=== PATIENT | female | born 1990 | race Caucasian/White ===

== ENCOUNTER 2017-03-01 17:16 | Emergency (ER) | payer MEDICAID, OTHER ==
[~2017-03-01] VITALS: Ht 165.1 cm; Wt 96.3 kg
[2017-03-01 17:18] VITALS: BP 132/90
== END 2017-03-01 18:35 ==
LOC: ED 18:29
DX: H10.023 Other mucopurulent conjunctivitis, bilateral (principal)
CPT/HCPCS: 99283